=== PATIENT | male | born 1960 | race Caucasian/White ===

== ENCOUNTER 2020-11-23 10:00 | Emergency (ER) | payer OTHER, SELFPAY ==
[2020-11-23 10:24] VITALS: BP 126/84; PULSE 60; RESP 16; TEMP 36.3; O2SAT 95; BMI 30.2
--- NOTE | 2020-11-23 10:31 | HMH.EDUTC ---
[facility] – [place], [place] Disposition Clinical Impression: Exposure to COVID-19 virus Disposition: Home, Self-Care Condition on Discharge: Good Instructions: DI for COVID-19 (Suspected or Confirmed ), Coronavirus Disease 2019, COVID-19: Testing and Tracing, Preventing the Spread of Coronavirus Discharge Instructions Additional Instructions: *Monitor Temp, Over the counter Motrin or Tylenol as directed/as needed Tylenol every 4 hours and Motrin every 6 hours (as long as your family doctor has told you that you can take it) for fever or pain. and straight to ER if unable to lower temp less than 101.0 after medication given *Warm salt water gargles may help to soothe the throat *Throat Lozenges *Warm fluids like tea with honey may help to soothe the throat *Sleep elevated *Humidifier/Vaporizer Your throat swab was sent for culture. Those results are typically sent to your primary care. Be sure to follow up in 2-3 days with your family doctor/primary care physician if no improvement so they can review those result and treat if necessary. If you don?t have a primary care doctor, I recommend you get one but in the mean time, you will have to return to a walk in clinic Follow up IMMEDIATELY for new or worsening symptoms or no Noticeable improvement over the next 48-72 hours. 911 for difficulty breathing or swallowing You were tested for today for COVID19 your test result should be back in the next 24-48 hours, you may call to the [facility] to see if your test results are back in the next 48 hours [phone] [facility] hours are 9am-9pm You was given a handout with instructions for Self Quarantine and Self isolation for while you wait on test results and what to do if they are positive If you are positive the Health Dept will be contacting you also Referrals: Jefferson Gauthier MD [Primary Care Provider] - As needed Time of Disposition: 10:34 Medical Decision Making - Garo Inquiry Pt receiving controlled substance: No Garo was queried for this patient: No Vital Signs: 11/23/20 10:24 Temperature 97.4 F L Temperature Source Oral Pulse Rate [Right] 60 Respiratory Rate 16 Blood Pressure [Right Arm] 126/84 Blood Pressure Mean [Right Arm] 98 Blood Pressure Source [Right Arm] Automatic Cuff Blood Pressure Position [Right Arm] Sitting 02 Sat by Pulse Oximetry 95 Oxygen Delivery Method Room Air - Lab Data Lab results reviewed: Yes: I reviewed the patient's lab results. Orders (Tests/Meds): ORDERS Category Date Time Status Covid-19 Nasal PCR ([facility]) Routine Lab 11/23/20 10:07 Ordered [facility] [place], [place] HPI - General Stated complaint: loss of taste, aches fatigue Time Seen by Provider: 11/23/20 10:31 Mode of Arrival: Ambulatory Source of Information: Patient Limitations: No Limitations Description of Symptoms (Recalled from Triage Doc. by RN): pt here for covid test. no taste or smell HEENT Symptoms (Recalled from RN notes): No Resp Symptoms (Recalled from RN notes): No Skin Symptoms (Recalled from RN notes): No MS Symptoms (Recalled from RN notes): No Functional Status (Recalled from RN notes): na - History of Present Illness Provider Complaint: Patient state that he was recently exposed to COVID States that he has been having some body aches, chills and recently loss his sense of taste and smell so he come in to get checked for COVID because he is suppose to have procedure done on Thursday and they will not do it if he is positive - Related Data Home Medications Medication Instructions Recorded Confirmed Aspirin [Adult Aspirin Regimen] 81 mg PO DAILY 11/20/20 11/20/20 lisinopriL [Lisinopril 20mg Tab] 20 mg * DAILY 11/20/20 11/20/20 Allergies Allergy/AdvReac Type Severity Reaction Status Date / Time No Known Allergies Allergy Verified 11/20/20 10:50 - Worker's Comp Is this a Worker's Comp case?: No [facility] History - Hepatitis A Screen Drug use history?: No High risk sexual behaviors?: No History of sexually transmitted infec
[2020-11-23 10:38] VITALS: BP 124/70; PULSE 70; RESP 16; TEMP 36.6; O2SAT 98
[2020-11-23 20:34] LABS: UTC Strep Screen (Rapid) Negative (Negative)
== END 2020-11-23 10:41 | disposition home or self-care (01) ==
PROVIDERS: Emergency Provider Nurse Practitioner; PCP Emergency Medicine
DX: U07.1 COVID-19 (principal); I10 Essential (primary) hypertension
CPT/HCPCS: 87880; 99202; G0463; U0003

== ENCOUNTER 2022-11-22 14:08 | Emergency (ER) | payer OTHER, SELFPAY ==
[2022-11-22] VITALS (7 sets, daily range): BP systolic 106–132; BP diastolic 63–85; PULSE 109–128; RESP 16–18; TEMP 37.6; O2SAT 92–95; BMI 30.6
[2022-11-22 14:52] LABS: Adenovirus,PCR Not Detected (NotDetected); Bordetella Pertussis Not Detected (NotDetected); Chlamydophila Pneumoniae, PCR Not Detected (NotDetected); Coronavirus 19, PCR Not Detected (NotDetected); Coronavirus 229E Not Detected (NotDetected); Coronavirus NL63 Not Detected (NotDetected); Coronavirus OC43 Not Detected (NotDetected); Coronovirus HKU1,PCR Not Detected (NotDetected); Human Metapneumovirus Not Detected (NotDetected); Influenza A, PCR Not Detected (NotDetected); Influenza AH1, 2009 Not Detected (NotDetected); Influenza AH1, PCR Not Detected (NotDetected); Influenza AH3,PCR Not Detected (NotDetected); Influenza B, PCR Not Detected (NotDetected); Mycoplasma Pneumoniae, PCR Not Detected (NotDetected); Parainfluenza 1, PCR Not Detected (NotDetected); Parainfluenza 2, PCR Not Detected (NotDetected); Parainfluenza 3, PCR Not Detected (NotDetected); Parainfluenza 4, PCR Not Detected (NotDetected); Respiratory Syncytial Virus Not Detected (NotDetected); Rhinovirus/Enterovirus Not Detected (NotDetected)
--- NOTE | 2022-11-22 15:10 | HMH.EDGENADL ---
Discharge Plan Disposition Patient Disposition: Home, Self-Care Condition: Good Prescriptions Prescriptions: New ondansetron 4 mg tablet,disintegrating 4 mg PO Q8H PRN (Reason: nausea and vomiting) 5 Days Qty: 30 0RF No Action lisinopril 20 MG tablet 20 mg * DAILY aspirin 81 MG tablet,delayed release (DR/EC) 81 mg PO DAILY Referrals Follow up/Referrals: Eugenia Gauthier APRN [Primary Care Provider] - See instructions Clinical Impressions Clinical Impression: Diarrhea Instructions Patient Instructions: Diarrhea, Ondansetron Discharge ED Provider: Ishan Rodriguez General Adult HPI General Chief complaint: Weakness Stated complaint: Can't hold food down, Dehydrated Time Seen by Provider: 11/22/22 14:19 History of Present Illness HPI narrative: 62-year-old male, no significant past medical history, presents with severe watery diarrhea over the last few days. He states he works with Some of them have [employer], and he had had similar issue previously after exposure, was treated for E. coli and Shigella. He denies any blood in stool, does report some mild lower abdominal pain and has had diverticulitis in the past, denies any prior abdominal surgeries. No fevers, chills, no vomiting but he has had some nausea. No treatments prior to arrival. States he cannot keep any food down even liquids Related Data Home Medications Medication Instructions Recorded Confirmed aspirin 81 mg tablet,delayed 81 mg PO DAILY Blood thinner 11/20/20 release lisinopril 20 mg tablet 20 mg * DAILY bp 11/20/20 Previous Rx's Medication Instructions Recorded ondansetron 4 mg disintegrating 4 mg PO Q8H PRN nausea and 11/22/22 tablet vomiting 5 days #30 tabs Allergies Allergy/AdvReac Type Severity Reaction Status Date / Time No Known Allergies Allergy Verified 11/20/20 10:50 [facility] Disclaimer: The information contained in this section may have been updated after the patient was seen, as this information can be updated by other users. Social History Smoking Status: Never smoker second hand exposure: No alcohol intake: current current occupational status: employed Travel in the last 8 weeks: None housing: house current occupation: [employer] current occupational exposures/hazards: Yes caffeine: Yes ROS Obtained: Yes Systems reviewed as appropriate & no additional complaints except as documented Constitutional Constitutional: Reports system reviewed and no additional complaints, except as documented Eyes Eyes: Reports system reviewed and no additional complaints, except as documented ENT Ears, Nose, Mouth, and Throat: Reports system reviewed and no additional complaints, except as documented Cardiovascular Cardiovascular: Reports system reviewed and no additional complaints, except as documented Respiratory Respiratory: Reports system reviewed and no additional complaints, except as documented Gastrointestinal Gastrointestingal: Reports system reviewed and no additional complaints, except as documented Genitourinary Male Genitourinary: Reports system reviewed and no additional complaints, except as documented Musculoskeletal Musculoskeletal: Reports system reviewed and no additional complaints, except as documented Integumentary/Breasts Skin/Breast: Reports system reviewed and no additional complaints, except as documented Neurologic Neurologic: Reports system reviewed and no additional complaints, except as documented Endocrine Endocrine: Reports system reviewed and no additional complaints, except as documented Hematologic/Lymphatic Henatologic/Lymphatic: Reports system reviewed and no additional complaints, except as documented Allergic/Immunologic Allergic/Immunologic: Reports system reviewed and no additional complaints, except as documented Physical Exam General General appearance: alert and other (Listless) Head Head exa
--- NOTE | 2022-11-22 15:15 | CT_ITS ---
PROCEDURE INFORMATION: Exam: CT Abdomen And Pelvis With Contrast Exam date and time: 11/22/2022 3:47 PM Age: 62 years old Clinical indication: Bloating and nausea; Additional info: Abdominal pain, HX of diverticulitis, diarrhea, TECHNIQUE: Imaging protocol: Computed tomography of the abdomen and pelvis with contrast. Radiation optimization: All CT scans at this facility use at least one of these dose optimization techniques: automated exposure control; mA and/or kV adjustment per patient size (includes targeted exams where dose is matched to clinical indication); or iterative reconstruction. Contrast material: ISOVUE; Contrast volume: 75 ml; Contrast route: IV; COMPARISON: No relevant prior studies available. FINDINGS: Lungs: Mild subsegmental atelectasis in the posterior lower lungs. No focal consolidation. Liver: Slightly heterogeneously diminished liver attenuation, suspect mild patchy fatty change. No hepatomegaly. No mass. Gallbladder and bile ducts: The gallbladder is unremarkable. No calcified stones or biliary dilatation. Pancreas: The pancreas is normal. Spleen: Mild splenomegaly approximate 14 cm long axis coronal image 51. Adrenal glands: The adrenal glands are normal. Kidneys and ureters: The kidneys are normal. The ureters are normal. Stomach and bowel: Diverticulosis coli. Minimal left lower quadrant pericolic soft tissue stranding, possible early acute diverticulitis. No pericolic fluid or extraluminal gas bubbles. No significant colon wall thickening, for the degree of distension. There is liquid stool through much of the colon and rectum with air-fluid levels, suggesting enterocolitis or other diarrheal disease. Mild scattered small intestinal air, no dilated loops or significant mucosal thickening. The stomach is normal. Appendix: A normal appendix is identified. Intraperitoneal space: There is no significant free intraperitoneal fluid. There is no free intraperitoneal air. Vasculature: There is no aortic aneurysm. Congenital variant retroaortic left renal vein. No portal venous gas. Lymph nodes: Multiple tiny mesenteric lymph nodes, most prominent in the right upper quadrant, up to 1.4 by 1 cm, borderline enlarged. No significant retroperitoneal adenopathy. Urinary bladder: The bladder is normal. Reproductive: Mild prostate enlargement 5.5 x 3.8 x 3.9 cm. Prostate calcifications. Seminal vesicles are unremarkable. Bones/joints: There are spinal degenerative changes, with multilevel disc narrrowing and spondylosis. Multilevel facet arthropathy. Multilevel foraminal stenoses. Soft tissues: There is a tiny fatty umbilical hernia; no herniated bowel loops. There are no soft tissue masses or fluid collections. IMPRESSION: 1. Liquid stool in the colon and rectum, consistent with enterocolitis or other diarrheal disease. 2. Extensive diverticulosis coli. Minimal left lower quadrant pericolic soft tissue stranding, question early diverticulitis. However, there is no pericolic fluid, and no extraluminal gas bubbles. 3. Mild mesenteric lymphadenopathy, likely reactive. 4. Additional nonemergency and chronic findings as above, including mild splenomegaly, spinal degenerative changes, mild prostate enlargement.
--- NOTE | 2022-11-22 15:19 | PC.NURSE ---
pt given ice chips per his request, okayed per JULISA OLIVAREZ
[2022-11-22 15:22] LABS: Basophils # 0.2 K/mm3 (0-0.2); Basophils % 1.3 % (0.1-2.0); Eosinophils # 0.1 K/mm3 (0.0-0.4); Eosinophils % 0.9 % (0.1-12.0); Hematocrit 54.9 % (42.0-52.0); Lymphocytes # 0.8 K/mm3 (0.7-4.5); Lymphocytes % 6.3 % (10-50); Mean Corpuscular HGB Conc 33.2 g/dL (31.8-35.4); Mean Corpuscular Hemoglobin 29.3 pg (27.0-31.2); Mean Corpuscular Volume 88.1 fl (80-94); Mean Platelet Volume 8.7 fl (7.4-10.4); Monocytes # 0.5 K/mm3 (0.1-1.0); Neutrophils # 10.5 K/mm3 (1.8-7.8); Neutrophils % 87.4 % (37.0-80.0); Platelet Count 176 K/mm3 (142-424); Red Blood Count 6.23 M/mm3 (4.60-6.20); Red Cell Distribution Width 13.9 % (11.5-17.5)
[2022-11-22 15:25] LABS: Chloride 104 mmol/L (98-107); Potassium 3.6 mmoL/L (3.5-5.1); Sodium 137 mmol/L (136-145)
--- NOTE | 2022-11-22 15:25 | PC.NURSE ---
Patient heading to CT in wheelchair
[2022-11-22 15:27] LABS: Alanine Aminotransferase 38 U/L (12-78); Aspartate Amino Transferase 31 U/L (17-59); Blood Urea Nitrogen 14 mg/dl (9-20); Estimated Glomerular Filt Rate 76 ml/min (>60); GFR (African American) 92 ML/MIN (>60)
[2022-11-22 15:28] LABS: Albumin Level 4.4 g/dl (3.5-5.0); Albumin/Globulin Ratio 1.5 (1.1-1.8); Alkaline Phosphatase 67 U/L (38-126); Anion Gap 12.6 mEq/L (5-15); Bilirubin,Total 1.3 mg/dl (0.2-1.3); Calcium 9.3 mg/dl (8.4-10.2); Carbon Dioxide 24 mmol/L (22.0-30.0); Globulin 2.9 g/dL (1.3-3.2); Glucose 127 mg/dl (74-100); Lipase 80 U/L (23-300); Magnesium 2.1 mg/dl (1.6-2.3); Total Protein,Serum 7.3 g/dl (6.3-8.2)
--- NOTE | 2022-11-22 15:30 | PC.NURSE ---
checked on pt at this time, pt states no needs at this time
--- NOTE | 2022-11-22 15:44 | PC.NURSE ---
Patient being wheeled to CT
[2022-11-22 15:54] LABS: MANUAL DIFFERENTIAL MANUAL DIFFERENTIAL (MANUAL DIFF)
[2022-11-22 16:59] LABS: Adenovirus F 40/41, stool Not Detected (NotDetected); Astrovirus Not Detected (NotDetected); Clostridium Difficile A/B, PCR Not Detected (NotDetected); Cryptosporidium Not Detected (NotDetected); Cyclospora Cayetanesis Not Detected (NotDetected); Entamoeba histolytica Not Detected (NotDetected); Enteroaggregative E coli Not Detected (NotDetected); Enteropathogenic E coli Not Detected (NotDetected); Enterotoxigenic E coli Not Detected (NotDetected); Giardia lamblia Not Detected (NotDetected); Norovirus Not Detected (NotDetected); Plesimonas Shigalloides, PCR Not Detected (NotDetected); Rotavirus A Not Detected (NotDetected); Salmonella, PCR Not Detected (NotDetected); Sapovirus Not Detected (NotDetected); Shigella Enterovasive E coli Not Detected (NotDetected); Vibrio Cholerae Not Detected (NotDetected); Vibrio, PCR Not Detected (NotDetected); Yersinia Entercolitica, PCR Not Detected (NotDetected)
[2022-11-22 17:11] LABS: Lymphocytes % 6 % (10-50); Monocytes % 2 % (2-9); Neutrophils % 92 % (42-76); Total Cells Counted 100
[2022-11-22 17:12] LABS: Platelet Estimate Normal; RBC Morphology Normal
[2022-11-22 17:23] LABS: Hemoglobin 18.3 g/dL (14.1-18.0)
[2022-11-22 18:54] LABS: Campylobacter Detected (NotDetected); Shiga-like toxin E coli Detected (NotDetected)
== END 2022-11-22 17:18 | disposition home or self-care (01) ==
PROVIDERS: Emergency Provider Emergency Medicine; PCP Family Medicine
DX: R19.7 Diarrhea, unspecified (principal); R53.1 Weakness; R11.2 Nausea with vomiting, unspecified; Z20.822 Contact with and (suspected) exposure to COVID-19; Z79.82 Long term (current) use of aspirin; Z79.899 Other long term (current) drug therapy
CPT/HCPCS: 99285; 96374; 96375; 96361; 74177; 80053; 83690; 83735; 85007; 85025; 87506; 87581; 87632; 87798; C9803; J2405; Q9967; U0003; U0005